=== PATIENT | male | born 1970 | race Caucasian/White ===

== ENCOUNTER 2020-04-22 17:33 | Inpatient (IN) | payer MEDICAID ==
[~2020-04-22] VITALS: Ht 188 cm; Wt 104.9 kg
[2020-04-22] MEDS ORDERED: vancomycin/NS 1 GM ADD-VANTAGE 250 ML IV ONE (18:50)
[2020-04-22] MEDS ORDERED: piperacillin/tazo 3.375gm/50ml 50 ML IV ONE (18:50)
[2020-04-22 18:55] LABS: BASOPHILS # (AUTO) 0.1 X10'3 (0-0.2); BASOPHILS % (AUTO) 0.6 % (0-1); EOSINOPHILS # (AUTO) 0.5 X10'3 (0-0.9); EOSINOPHILS % (AUTO) 2.7 % (0-6); HEMATOCRIT 41.4 % (42.0-52.0); HEMOGLOBIN 13.5 g/dl (14.0-17.9); LYMPHOCYTES # (AUTO) 2.7 X10'3 (1.1-4.8); LYMPHOCYTES % (AUTO) 15.4 % (21-51); MEAN CORPUSCULAR HEMOGLOBIN 27.2 PG (27.0-31.0); MEAN CORPUSCULAR HGB CONC 32.6 g/dL (33.0-36.5); MEAN CORPUSCULAR VOLUME 83.2 FL (78-98); MEAN PLATELET VOLUME 8.4 FL (7.4-10.4); MONOCYTES # (AUTO) 1.9 X10'3 (0-0.9); MONOCYTES % (AUTO) 10.8 % (2-12); NEUTROPHILS # (AUTO) 12.2 X10'3 (1.8-7.7); NEUTROPHILS % (AUTO) 70.5 % (42-75); PLATELET COUNT 350 X10'3 (140-440); RED BLOOD COUNT 4.98 X10'6 (4.70-6.10); RED CELL DISTRIBUTION WIDTH 15.3 % (11.5-14.5); WHITE BLOOD COUNT 17.3 X10'3 (4.5-11.0)
[2020-04-22 19:06] LABS: ALANINE AMINOTRANSFERASE 25 U/L (12-78); ALBUMIN 3.7 G/DL (3.4-5.0); ALBUMIN/GLOBULIN RATIO 0.9 (1.1-1.5); ALKALINE PHOSPHATASE 91 IU/L (46-116); ANION GAP 11 (8-16); ASPARTATE AMINO TRANSFERASE 28 U/L (10-37); BILIRUBIN,TOTAL 0.3 MG/DL (0.1-1.0); BLOOD UREA NITROGEN 19 MG/DL (7-18); BUN/CREATININE RATIO 19.4 (5.4-32.0); CALCIUM 9.1 MG/DL (8.5-10.1); CHLORIDE 103 MMOL/L (99-107); CREATININE 0.98 MG/DL (0.60-1.10); GLUCOSE 104 MG/DL (70-104); POTASSIUM 3.9 MMOL/L (3.5-5.1); SODIUM 139 MMOL/L (135-145); TOTAL CARBON DIOXIDE 25.5 MMOL/L (24-32); TOTAL PROTEIN 7.7 G/DL (6.4-8.2); eGFR 82 ML/MIN
[2020-04-22] MEDS ORDERED: NO HOME MEDS (19:17)
[2020-04-22] MEDS ORDERED: ondansetron/PF 4mg/2ml inj IV PRN (19:30)
[2020-04-22] MEDS ORDERED: acetaminophen 325mg tablet PO PRN ×2 (19:30)
[2020-04-22] MEDS ORDERED: magnesium 2GM in 50ml NS 50 ML IV PRN (19:30)
[2020-04-22] MEDS ORDERED: magnesium Cl slow-release 64mg tablet PO PRN (19:30)
[2020-04-22] MEDS ORDERED: potassium Cl 20 mEq SR tablet PO PRN ×2 (19:30)
[2020-04-22] MEDS ORDERED: magnesium 4gm in 100ml NS 100 ML IV PRN (19:30)
[2020-04-22] MEDS ORDERED: potassium CL 10mEq/100ml bag 100 ML IV PRN ×2 (19:30)
[2020-04-22] MEDS: normal saline 1000ml 1,000 ML IV SCH (19:37)
[2020-04-22] MEDS: HYDROcodone/acetaminophen 5mg/325mg tablet PO PRN (19:49)
[2020-04-22] MEDS: K and/or MAG REPLACEMENT MC SCH (20:00)
[2020-04-22] MEDS ORDERED: vancomycin/NS 1 GM ADD-VANTAGE 250 ML IV SCH (20:00)
[2020-04-22] MEDS: cefepime 1GM/NS ADD-VANTAGE 100 ML IV SCH (21:41)
[2020-04-22 22:45] VITALS: BP 136/89
--- NOTE | 2020-04-22 22:45 | NUR ---
Pt on unit and ambulated to room
[2020-04-23] MEDS: HYDROcodone/acetaminophen 5mg/325mg tablet PO PRN ×4 (02:50→23:51)
[2020-04-23 05:10] LABS: ALBUMIN 2.9 G/DL (3.4-5.0); ANION GAP 2 (8-16); BLOOD UREA NITROGEN 14 MG/DL (7-18); BUN/CREATININE RATIO 13.2 (5.4-32.0); CALCIUM 8.7 MG/DL (8.5-10.1); CHLORIDE 110 MMOL/L (99-107); CREATININE 1.06 MG/DL (0.60-1.10); GLUCOSE 91 MG/DL (70-104); MAGNESIUM 2.1 MG/DL (1.5-2.4); POTASSIUM 4.1 MMOL/L (3.5-5.1); SODIUM 143 MMOL/L (135-145); TOTAL CARBON DIOXIDE 31.3 MMOL/L (24-32); eGFR 75 ML/MIN
[2020-04-23 06:26] LABS: BASOPHILS # (AUTO) 0.1 X10'3 (0-0.2); BASOPHILS % (AUTO) 0.8 % (0-1); EOSINOPHILS # (AUTO) 0.6 X10'3 (0-0.9); EOSINOPHILS % (AUTO) 3.8 % (0-6); HEMOGLOBIN 12.9 g/dl (14.0-17.9); LYMPHOCYTES # (AUTO) 2.6 X10'3 (1.1-4.8); LYMPHOCYTES % (AUTO) 16.9 % (21-51); MEAN CORPUSCULAR HEMOGLOBIN 27.7 PG (27.0-31.0); MEAN CORPUSCULAR VOLUME 83.9 FL (78-98); MONOCYTES # (AUTO) 1.5 X10'3 (0-0.9); MONOCYTES % (AUTO) 9.6 % (2-12); NEUTROPHILS # (AUTO) 10.5 X10'3 (1.8-7.7); NEUTROPHILS % (AUTO) 68.9 % (42-75); PLATELET COUNT 341 X10'3 (140-440); RED BLOOD COUNT 4.65 X10'6 (4.70-6.10); RED CELL DISTRIBUTION WIDTH 15.3 % (11.5-14.5); WHITE BLOOD COUNT 15.2 X10'3 (4.5-11.0)
[2020-04-23 07:00] VITALS: BP 107/70
[2020-04-23] MEDS: K and/or MAG REPLACEMENT MC SCH ×2 (07:01→20:00)
[2020-04-23] MEDS: cefepime 1GM/NS ADD-VANTAGE 100 ML IV SCH ×2 (07:05→21:37)
[2020-04-23] MEDS: VANCOmycin 1250MG/NS 250ml Bag 250 ML IV SCH ×2 (08:36→23:26)
--- NOTE | 2020-04-23 11:14 | NUR ---
Patient in room [facility]. I have received report from Silva BOOGIE and had the opportunity to ask questions and assume patient care.
[2020-04-23 12:00] VITALS: BP 107/70
[2020-04-23 18:00] VITALS: BP 99/69
[2020-04-23] MEDS: enoxaparin 40mg/0.4ml syringe SUBCUT SCH (21:36)
[2020-04-23] MEDS: lactobacillus rhamnosus 10,000 MMU CELLS/CAPSULE PO SCH (21:36)
[2020-04-23] MEDS: normal saline 1000ml 1,000 ML IV SCH (23:27)
[2020-04-24] VITALS: BP 124/76
--- NOTE | 2020-04-24 05:17 | NUR ---
Student Medication Administration: For all medication-pass time frames, all medication were reviewed, dispensed, administered and documented per hospital policy by Jennifer Shahid Nurse. Student documentation: I have reviewed and agree with all interventions, assessments performed and documented by Jennifer Shahid.
[2020-04-24 05:39] LABS: ALBUMIN 2.8 G/DL (3.4-5.0); ANION GAP 6 (8-16); BLOOD UREA NITROGEN 13 MG/DL (7-18); BUN/CREATININE RATIO 12.5 (5.4-32.0); CALCIUM 8.5 MG/DL (8.5-10.1); CHLORIDE 106 MMOL/L (99-107); CREATININE 1.04 MG/DL (0.60-1.10); GLUCOSE 98 MG/DL (70-104); SODIUM 141 MMOL/L (135-145); TOTAL CARBON DIOXIDE 29.2 MMOL/L (24-32); eGFR 76 ML/MIN
[2020-04-24 05:50] LABS: BASOPHILS # (AUTO) 0.1 X10'3 (0-0.2); EOSINOPHILS # (AUTO) 0.5 X10'3 (0-0.9); HEMATOCRIT 38.2 % (42.0-52.0); HEMOGLOBIN 12.6 g/dl (14.0-17.9); LYMPHOCYTES # (AUTO) 2.7 X10'3 (1.1-4.8); MEAN CORPUSCULAR HEMOGLOBIN 27.4 PG (27.0-31.0); MEAN CORPUSCULAR HGB CONC 32.9 g/dL (33.0-36.5); MONOCYTES # (AUTO) 1.4 X10'3 (0-0.9); NEUTROPHILS # (AUTO) 7.9 X10'3 (1.8-7.7); PLATELET COUNT 343 X10'3 (140-440); RED BLOOD COUNT 4.59 X10'6 (4.70-6.10)
[2020-04-24 05:51] LABS: BASOPHILS % (AUTO) 0.9 % (0-1); EOSINOPHILS % (AUTO) 3.8 % (0-6); LYMPHOCYTES % (AUTO) 21.1 % (21-51); MEAN CORPUSCULAR VOLUME 83.3 FL (78-98); NEUTROPHILS % (AUTO) 63.2 % (42-75); WHITE BLOOD COUNT 12.6 X10'3 (4.5-11.0)
--- NOTE | 2020-04-24 07:08 | NUR ---
Patient in room [facility]. I have received report from Patricio BOOGIE and had the opportunity to ask questions and assume patient care.
[2020-04-24] MEDS: cefepime 1GM/NS ADD-VANTAGE 100 ML IV SCH (07:44)
[2020-04-24] MEDS: lactobacillus rhamnosus 10,000 MMU CELLS/CAPSULE PO SCH ×2 (07:44→20:11)
[2020-04-24 08:00] VITALS: BP_SYST 114; BP_SYST 137; BP_DIAS 46; BP_DIAS 75
[2020-04-24] MEDS: K and/or MAG REPLACEMENT MC SCH ×2 (08:00→20:00)
[2020-04-24] MEDS: HYDROcodone/acetaminophen 5mg/325mg tablet PO PRN (12:44)
[2020-04-24] MEDS: VANCOmycin 1250MG/NS 250ml Bag 250 ML IV SCH ×2 (12:44→20:11)
[2020-04-24 18:00] VITALS: BP 121/74
--- NOTE | 2020-04-24 18:53 | NUR ---
Problems reprioritized. Patient report given, questions answered & plan of care reviewed with Prudence RN.
--- NOTE | 2020-04-24 19:06 | NUR ---
Patient in room [facility]. I have received report from KAROLYN BOOGIE and had the opportunity to ask questions and assume patient care.
[2020-04-24] MEDS ORDERED: VANCOMYCIN LEVEL IV ONE (19:30)
[2020-04-24] MEDS: enoxaparin 40mg/0.4ml syringe SUBCUT SCH (20:12)
[2020-04-25 00:16] VITALS: BP 119/76
[2020-04-25 05:29] LABS: ALBUMIN 3.1 G/DL (3.4-5.0); ANION GAP 6 (8-16); BLOOD UREA NITROGEN 11 MG/DL (7-18); BUN/CREATININE RATIO 11.5 (5.4-32.0); CHLORIDE 105 MMOL/L (99-107); CREATININE 0.96 MG/DL (0.60-1.10); GLUCOSE 87 MG/DL (70-104); MAGNESIUM 2.2 MG/DL (1.5-2.4); SODIUM 139 MMOL/L (135-145); TOTAL CARBON DIOXIDE 28.4 MMOL/L (24-32); eGFR 84 ML/MIN
[2020-04-25 05:42] LABS: HEMOGLOBIN 13.1 g/dl (14.0-17.9); MEAN CORPUSCULAR HEMOGLOBIN 27.6 PG (27.0-31.0); WHITE BLOOD COUNT 14.2 X10'3 (4.5-11.0)
[2020-04-25 05:43] LABS: BASOPHILS # (AUTO) 0.1 X10'3 (0-0.2); BASOPHILS % (AUTO) 0.7 % (0-1); EOSINOPHILS # (AUTO) 0.4 X10'3 (0-0.9); EOSINOPHILS % (AUTO) 2.8 % (0-6); HEMATOCRIT 39.7 % (42.0-52.0); LYMPHOCYTES # (AUTO) 2.7 X10'3 (1.1-4.8); LYMPHOCYTES % (AUTO) 19.3 % (21-51); MEAN CORPUSCULAR HGB CONC 32.9 g/dL (33.0-36.5); MEAN PLATELET VOLUME 8.6 FL (7.4-10.4); MONOCYTES # (AUTO) 1.3 X10'3 (0-0.9); MONOCYTES % (AUTO) 9.4 % (2-12); NEUTROPHILS # (AUTO) 9.6 X10'3 (1.8-7.7); NEUTROPHILS % (AUTO) 67.8 % (42-75); PLATELET COUNT 343 X10'3 (140-440); RED BLOOD COUNT 4.73 X10'6 (4.70-6.10)
--- NOTE | 2020-04-25 06:49 | NUR ---
Problems reprioritized. Patient report given, questions answered & plan of care reviewed with NEHEMIAS BOOGIE.
--- NOTE | 2020-04-25 06:59 | NUR ---
Patient in room [facility]. I have received report from CHUYITA Burgos and had the opportunity to ask questions and assume patient care.
[2020-04-25 07:00] VITALS: BP 102/67
[2020-04-25] MEDS: lactobacillus rhamnosus 10,000 MMU CELLS/CAPSULE PO SCH (07:43)
[2020-04-25] MEDS: K and/or MAG REPLACEMENT MC SCH (08:00)
[2020-04-25] MEDS: VANCOmycin 1250MG/NS 250ml Bag 250 ML IV SCH (08:00)
[2020-04-25 08:39] LABS: PLATELET ESTIMATE NORMAL
[2020-04-25 08:40] LABS: ANISOCYTOSIS FEW; HYPOGRANULAR PLATELETS MODERATE; LARGE PLATELETS FEW
[2020-04-25] MEDS ORDERED: LINE600T11 PO (10:45)
[2020-04-25 11:00] VITALS: BP 112/67
--- NOTE | 2020-04-25 12:30 | NUR ---
Discussed discharge instructions with patient regarding cellulitis, wound care follow up and new prescription. Patient verbalized understanding of teaching and did not having questions. Patient discharged with all personal belongings and escorted out in wheelchair by Jose Senior Net Engineer.
--- NOTE | 2020-04-25 13:37 | NUR ---
Thien OSPINA. MAURICIO no drainage no open wound. Addendum: 04/25/20 at 1338 by Wiley Santiago RN Amended: Links added.
--- NOTE | 2020-04-25 13:49 | NUR ---
Wound care was asked to see patient regarding his left lower leg, he has been having issues after doing some yard work. He has cellulitis and a few open area to the leg. His leg was cleaned with wound cleanser, extra skin cleaned off. An area to the dugan that is ulcerated was cleaned and some purulent drainage removed. Barrier spray applied to this area then therahoney, then alginate and covered with hydrophylic foam. I explained how to do this dressing change. Patient will be making an appointment to the outpatient wound center. Supplies left at bedside. RECOMMEND: 1. Daily bathing with no rinse skin cleanser. 2. Cream/Lotion to be applied to skin after bathing. 3. Yecenia care Q shift and prn soiling followed by with Barrier Cream. 4. Turn patient Q 1-2 hrs and reposition with pillows. 5. Float heels to offload pressure. 6. Wound care to left lower leg, clean with wound cleanser, apply barrier spray to periwound, then therahoney, alginate, hydrophylic foam to ulcerated area on dugan. To be changed Q3D.
== END 2020-04-25 12:30 | disposition home or self-care (01) | DRG 720 ==
LOC: ER 17:34 → ED HOLD 19:28 → SUR 3N 22:35
PROVIDERS: ADMIT Internal Medicine; ATTEND Internal Medicine
DX: A41.9 Sepsis, unspecified organism (principal); L03.116 Cellulitis of left lower limb; F17.210 Nicotine dependence, cigarettes, uncomplicated; F15.90 Other stimulant use, unspecified, uncomplicated; Z79.899 Other long term (current) drug therapy
CPT/HCPCS: 36415; 80048; 80053; 80202; 83605; 83735; 84145; 85008; 85025; 87040; 87081; 99285; G0378; J0692; J1650; J2543; J3370; J7030